=== PATIENT | male | born 1940 | race Caucasian/White ===

== ENCOUNTER → 2021-06-03 | Outpatient (CLI) | payer MEDICARE, OTHER ==
[~2021-06-03] VITALS: Ht 193 cm; Wt 105.0 kg
[~2021-06-03] MED LIST: ACTIFED PO; ALEVE 220MG220 MG PO; ASPIRIN E.C. 8181 MG PO; BIOTIN800 MCG PO; FLOMAX 0.40.4 MG/CAP PO; MASON NATURAL S1 CAP PO
[2021-06-03 12:24] VITALS: BP 169/89; PULSE 64; TEMP 98.4
[2021-06-03 13:45] VITALS: BP 169/71; PULSE 62
== END ==
LOC: COL.RAD 12:02
DX: M54.16 Radiculopathy, lumbar region (principal); M25.552 Pain in left hip; G89.29 Other chronic pain
CPT/HCPCS: J1100